=== PATIENT | female | born 1980 | race American Indian/Alaskan Native ===

== ENCOUNTER 2017-04-27 15:30 | Emergency (ER) | payer BC ==
[2017-04-27 16:53] VITALS: BP 124/83
[2017-04-27 17:16] LABS: Basophils # (Auto) 0.1 K/mm3 (0.0-0.1); Basophils % (Auto) 0.5 % (0.0-1.8); Eosinophils # (Auto) 0.1 K/mm3 (0.0-0.4); Eosinophils % (Auto) 1.5 % (0.0-4.3); Hematocrit 31.8 % (30.3-42.9); Hemoglobin 10.3 gm/dl (10.1-14.3); Lymphocytes # (Auto) 2.6 K/mm3 (1.2-5.4); Lymphocytes % (Auto) 26.3 % (13.4-35.0); Mean Corpuscular HGB Conc 32 % (30-34); Mean Corpuscular Hemoglobin 28 pg (28-32); Mean Corpuscular Volume 87 fl (79-97); Monocytes # (Auto) 0.7 K/mm3 (0.0-0.8); Monocytes % (Auto) 6.8 % (0.0-7.3); Platelet Count 310 K/mm3 (140-440); Red Blood Count 3.64 M/mm3 (3.65-5.03); Red Cell Distribution Width 13.2 % (13.2-15.2)
[2017-04-27 20:05] LABS: Bilirubin,Urine NEG (Negative); Blood,Urine MOD (Negative); Color,Urine Red (Yellow); Mucus,Urine 1+ /HPF; Urobilinogen,Urine < 2.0 mg/dL (<2.0)
[2017-04-27 20:10] LABS: RBC,Urine > 182.0 /HPF (0.0-6.0); WBC,Urine > 182.0 /HPF (0.0-6.0)
[2017-04-27] MEDS ORDERED: ZOFRAN ODT PO ONE (20:29)
[2017-04-27] MEDS ORDERED: TYLENOL #3 PO ONE (20:29)
--- NOTE | 2017-04-27 21:58 | Emergency Department Report ---
HPI - General Chief Complaint: Vaginal Bleeding Time Seen by Provider: 04/27/17 19:58 - HPI HPI: The patient is a 37-year-old female who presents for evaluation of vaginal bleeding and abdominal pain. The patient has a history of long-standing fibroids and recurrent vaginal bleeding. She states the cramps or vaginal bleeding has been ongoing for the past 2 weeks, constant, and associated with intermittent cramping abdominal pain, moderate in severity, exacerbated with bending over. The patient denies fever, chills, night sweats, diarrhea, blood in the stool, dark tarry stool, dysuria, hematuria, flank pain, genital discharge, inability to pass flatus. ED Past Medical Hx - Past Medical History Additional medical history: UTERINE FIBRIOD - Surgical History Additional Surgical History: C SECT, TUMMY TUCK, ADENIODECTOMY, TONSILECTOMY, CYST REMOVAL - Social History Smoking Status: Former Smoker Substance Use Type: Alcohol - Medications Home Medications: Home Medications Medication Instructions Recorded Confirmed Last Taken Type traMADol [Ultram 50 MG tab] 50 mg PO Q6HR PRN #15 tablet 04/27/17 Unknown Rx ED Review of Systems ROS: Stated complaint: BLEEDING FOR 3 WEEKS AFTER BIOPSY Other details as noted in HPI Constitutional: denies: fever ENT: denies: throat or neck pain Respiratory: denies: cough, shortness of breath Cardiovascular: denies: chest pain Endocrine: denies unexplained weight loss or gain Gastrointestinal: denies: abdominal pain, nausea Genitourinary: reports vag bleeding denies: dysuria Musculoskeletal: denies: leg swelling Skin: denies: rash Neurological: denies: headache Hematological/Lymphatic: denies: easy bleeding or easy bruising Psych: denies sadness or hopelessness Physical Exam - Physical Exam Vital Signs: Vital Signs 04/27/17 16:52 Temperature 98.7 F Pulse Rate 84 Respiratory 17 Rate Blood Pressure 124/83 [Right] O2 Sat by Pulse 100 Oximetry Physical Exam: General: well-nourished, well-developed, no acute distress Head: Normocephalic, atraumatic Eyes: normal sclera ENT: Mucous membranes are pink and moist Neck: trachea midline, neck supple, No neck stiffness, no cervical adenopathy Respiratory: Breath sounds equal bilaterally, no wheezing, rales, or rhonchi Cardio: S1 and S2 present, no murmurs, rubs, gallops, capillary refill is brisk Abdomen: Normoactive bowel sounds, soft abdomen, suprapubic tenderness to palpation present, no rigidity, no guarding or rebound tenderness Chest WALL/Back: No tenderness to palpation of the chest wall, no CVA tenderness with percussion Musc: No pitting edema Skin: No rash Neuro: no facial drooping, normal speech Psych: Normal affect ED Course Vital Signs 04/27/17 16:52 Temperature 98.7 F Pulse Rate 84 Respiratory 17 Rate Blood Pressure 124/83 [Right] O2 Sat by Pulse 100 Oximetry ED Medical Decision Making - Lab Data Result diagrams: 04/27/17 17:01 - Medical Decision Making The patient was seen and examined by myself. The patient is placed on a classroom monitor and continuous pulse ox. On initial evaluation, the patient was found to be in no distress. Evaluation orders were placed. The patient given a tablet of Tylenol 3. Lab results are reassuring including non-concerning levels of RBC, hemoglobin, hematocrit, and negative test. The patient was reevaluated and reported that their symptoms were improved. As the patient has not concerning levels of RBC, hemoglobin, hematocrit, with normal vital signs, and there is no evidence of severe bleeding requiring transfusion or other emergent management at this time, the patient is stable for discharge with outpatient follow-up. The patient is given follow-up and return instructions. The patient expressed understanding and agreed with the plan. The patient is discharged in stable condition. Critical care attestation.: If time is entered above; I have spent that time in minutes in the direct care of this critically ill patient, excluding procedure time. ED Disposition Clinical Impression: Vaginal bleeding, Acute suprapubic pain Disposition: TO HOME OR SELFCARE Is pt being admited?: No Does the pt Need Aspirin: No Condition: Stable Instructions: Uterine Fibroids (ED), Menstruation (ED), Acute Abdominal Pain ( ED) Referrals: JEN HADDAD MD [Primary Care Provider] - 3-5 Days LIUDMILA HOWARD MD [Staff Physician] - 3-5 Days [facility] [Provider Group] - 3-5 Days Time of Disposition: 21:51
== END 2017-04-27 21:59 | disposition home or self-care (01) ==
LOC: EDBD → ED 15:30
DX: N93.9 Abnormal uterine and vaginal bleeding, unspecified (principal); R10.30 Lower abdominal pain, unspecified; Z87.891 Personal history of nicotine dependence
CPT/HCPCS: 36415; 81001; 84702; 85025; 86850; 86900; 86901; 99284; Q0162

== ENCOUNTER 2020-09-25 01:52 | Emergency (ER) | payer BC, MEDICAID, SELFPAY ==
[2020-09-25 03:16] LABS: Basophils % (Auto) 0.5 % (0.0-1.8); Eosinophils # (Auto) 0.1 K/mm3 (0.0-0.4); Eosinophils % (Auto) 1.1 % (0.0-4.3); Hematocrit 24.3 % (30.3-42.9); Hemoglobin 7.3 gm/dl (10.1-14.3); Lymphocytes # (Auto) 2.9 K/mm3 (1.2-5.4); Lymphocytes % (Auto) 32.3 % (13.4-35.0); Mean Corpuscular HGB Conc 30 % (30-34); Mean Corpuscular Volume 71 fl (79-97); Monocytes # (Auto) 0.7 K/mm3 (0.0-0.8); Monocytes % (Auto) 7.4 % (0.0-7.3); Platelet Count 414 K/mm3 (140-440); Red Blood Count 3.42 M/mm3 (3.65-5.03); Red Cell Distribution Width 18.6 % (13.2-15.2)
[2020-09-25 03:27] LABS: Blood Urea Nitrogen 8 mg/dL (7-17); Calcium 9.4 mg/dL (8.4-10.2); Hemolysis Index 9
[2020-09-25 03:29] LABS: BUN/Creatinine Ratio 11
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
[2020-09-25 04:24] LABS: Bacteria,Urine 2+ /HPF (Negative); Bilirubin,Urine NEG (Negative); Blood,Urine LG (Negative); Color,Urine Red (Yellow); Urobilinogen,Urine < 2.0 mg/dL (<2.0)
[2020-09-25 04:28] LABS: Amphetamine Screen,Urine PRESUMPTIVE NEGATIVE; Benzodiazepines Screen,Urine PRESUMPTIVE NEGATIVE; Cannabinoid Screen,Urine PRESUMPTIVE NEGATIVE; Cocaine Screen,Urine PRESUMPTIVE NEGATIVE; Methadone Screen,Urine PRESUMPTIVE NEGATIVE; Opiate Screen,Urine PRESUMPTIVE NEGATIVE
[2020-09-25 04:30] LABS: RBC,Urine > 182.0 /HPF (0.0-6.0)
[2020-09-25 04:35] LABS: HCG Qualitative,Urine Negative (Negative)
--- NOTE | 2020-09-25 10:56 | Event Note ---
Date: 09/25/20 This patient came in late last night with a complaint of suicidal ideations without a plan. She was seen by my colleague and medically cleared. She was found to have a UTI and was placed on antibiotics. She also was found to have anemia with a hemoglobin of 7.3 and was placed on iron supplementation. Vital signs of been reassuring including being afebrile. The patient has not been seen by the psychiatric team yet today, but they will evaluate the patient for further disposition. The patient is currently in ED hold secondary to the ana cidal ideations. No events overnight. There are no updated medications for reconciliation at this time. We will continue to monitor the patient during her ED course. Vital Signs - 24 hr 09/25/20 09/25/20 09/25/20 01:59 02:40 08:16 Temperature 98.9 F 97.9 F Pulse Rate 93 H 69 Respiratory 18 20 Rate Blood Pressure 135/86 Blood Pressure 120/77 [Left] O2 Sat by Pulse 100 100 100 Oximetry
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
[2020-09-25] MEDS: SERTRALINE 25 MG TAB PO SCH (12:02)
[2020-09-25] MEDS: DIVALPROEX DR 250 MG TAB PO SCH ×2 (12:02→22:04)
[2020-09-25 17:06] LABS: Hematocrit 22.5 % (30.3-42.9); Hemoglobin 6.9 gm/dl (10.1-14.3)
[2020-09-25] MEDS: medroxyPROGESTERone ACETATE 5 MG TAB PO SCH (19:45)
[2020-09-25] MEDS: FERROUS SULFATE 325 MG TAB PO SCH ×2 (19:49→22:04)
[2020-09-25] MEDS ORDERED: traZODone 50 MG TAB PO SCH (22:00)
[2020-09-26 08:46] VITALS: BP 117/77
[2020-09-26] MEDS: DIVALPROEX DR 250 MG TAB PO SCH (10:28)
[2020-09-26] MEDS: FERROUS SULFATE 325 MG TAB PO SCH (10:28)
[2020-09-26] MEDS: SERTRALINE 25 MG TAB PO SCH (10:28)
[2020-09-26] MEDS: medroxyPROGESTERone ACETATE 5 MG TAB PO SCH (10:29)
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
== END 2020-09-26 11:32 | disposition home or self-care (01) ==
LOC: ED 01:52
DX: N39.0 Urinary tract infection, site not specified (principal); D64.9 Anemia, unspecified; R45.89 Other symptoms and signs involving emotional state; F32.9 Major depressive disorder, single episode, unspecified; Z20.822 Contact with and (suspected) exposure to COVID-19; Z79.899 Other long term (current) drug therapy; Z90.49 Acquired absence of other specified parts of digestive tract; Z87.891 Personal history of nicotine dependence; Z88.0 Allergy status to penicillin; Z98.890 Other specified postprocedural states
CPT/HCPCS: 36415; 80048; 80307; 81001; 81025; 85014; 85018; 85025; 86850; 86900; 86901; 99284; U0003; 80320; G0480